=== PATIENT | female | born 1970 | race Two or more races ===

== ENCOUNTER 2023-06-15 09:03 | Inpatient (IN) | payer OTHER ==
[~2023-06-15] VITALS: Ht 157.5 cm; Wt 61.8 kg
[2023-06-15] MEDS ORDERED: SODIUM CHLORIDE 0.9% 1,000 ML IV ONE (09:30)
[2023-06-15] MEDS ORDERED: KETOROLAC TROMETH 30 MG/ML 1ML VIAL IV ONE (09:30)
[2023-06-15 10:07] LABS: Basophils # (auto) 0.1 10 ^3/uL (0-0.2); Basophils % (auto) 0.6 % (0.0-2.0); Eosinophils # (auto) 0 10 ^3/uL (0-0.8); Hematocrit 40.3 % (36.0-46.0); Hemoglobin 13.4 g/dL (12.2-16.2); Lymphocytes # (auto) 0.7 10 ^3/uL (0.4-5.4); Lymphocytes % (auto) 7.4 % (10.0-50.0); Mean Corpuscular Hemoglobin 29.6 pg (28.0-32.0); Mean Corpuscular Hgb Conc. 33.3 g/dL (32.0-36.0); Mean Corpuscular Volume 88.9 fL (80.0-100.0); Monocytes # (auto) 0.6 10 ^3/uL (0-1.3); Monocytes % (auto) 6.1 % (0.0-12.0); Neutrophils # (auto) 8.7 10 ^3/uL (1.6-8.6); Neutrophils % (auto) 85.9 % (37.0-80.0); Red Blood Cells 4.53 10^6/uL (4.0-5.20); Red Cell Distribution Width 12.8 % (11.8-14.3); White Blood Cell 10.1 10^3/uL (4.4-10.8)
[2023-06-15 10:09] LABS: Urine Bacteria MANY /hpf (None Seen); Urine Blood 3+ /uL (Negative); Urine Mucus FEW (None Seen); Urine Specific Gravity 1.015 (1.001-1.035); Urine WBC 38 /hpf (0 - 5)
[2023-06-15 10:17] LABS: Albumin 3.9 g/dL (3.4-5.0); Calcium 8.6 mg/dL (8.5-10.1); Potassium 3.4 mmol/L (3.5-5.1)
[2023-06-15 10:21] LABS: BUN/Creatinine Ratio 13.8 (10.0-20.0); Bilirubin, Total 0.5 mg/dL (0.2-1.0); Total Protein 7.7 g/dL (6.4-8.2)
[2023-06-15] MEDS ORDERED: cefTRIAXone 1GM/50ML D5W 50 ML IV ONE (10:30)
[2023-06-15] MEDS ORDERED: MORPHINE SULFATE INJ 2 MG/ml SYRG IV ONE (10:30)
[2023-06-15] MEDS ORDERED: ONDANSETRON HCL 4 MG/2 ML VIAL IV ONE (10:30)
[2023-06-15 10:55] VITALS: PULSE 83; RESP 15; O2SAT 96
[2023-06-15] MEDS ORDERED: DOCUSATE SOD 100 MG CAP PO PRN (11:45)
[2023-06-15] MEDS ORDERED: ONDANSETRON HCL 4 MG/2 ML VIAL IV PRN (11:45)
[2023-06-15] MEDS ORDERED: MORPHINE SULFATE INJ 2 MG/ml SYRG IV PRN (11:45)
[2023-06-15] MEDS: SODIUM CHLORIDE 0.9% 1,000 ML IV SCH ×2 (12:59→21:11)
[2023-06-15 14:07] VITALS: BP 120/64; PULSE 69; RESP 16; TEMP 97.8; O2SAT 96
[2023-06-15 17:00] VITALS: BP 99/58; PULSE 16; RESP 16; TEMP 97.7; O2SAT 91
[2023-06-15 20:00] VITALS: PULSE 73; RESP 18; O2SAT 99
[2023-06-15 22:00] VITALS: BP 100/60; PULSE 73; RESP 18; TEMP 97.8; O2SAT 99
[2023-06-16 05:00] VITALS: BP 104/63; PULSE 73; RESP 18; TEMP 97.9; O2SAT 98
[2023-06-16 05:56] LABS: Basophils # (auto) 0 10 ^3/uL (0-0.2); Basophils % (auto) 0.2 % (0.0-2.0); Eosinophils # (auto) 0 10 ^3/uL (0-0.8); Hematocrit 34.7 % (36.0-46.0); Hemoglobin 11.7 g/dL (12.2-16.2); Lymphocytes # (auto) 0.8 10 ^3/uL (0.4-5.4); Lymphocytes % (auto) 6.3 % (10.0-50.0); Mean Corpuscular Hemoglobin 29.9 pg (28.0-32.0); Mean Corpuscular Hgb Conc. 33.6 g/dL (32.0-36.0); Mean Corpuscular Volume 89.1 fL (80.0-100.0); Monocytes # (auto) 0.7 10 ^3/uL (0-1.3); Monocytes % (auto) 5.9 % (0.0-12.0); Neutrophils # (auto) 10.4 10 ^3/uL (1.6-8.6); Neutrophils % (auto) 87.6 % (37.0-80.0); Red Cell Distribution Width 12.6 % (11.8-14.3); White Blood Cell 11.9 10^3/uL (4.4-10.8)
[2023-06-16 06:05] LABS: Albumin 2.8 g/dL (3.4-5.0); BUN/Creatinine Ratio 26.4 (10.0-20.0); Calcium 7.9 mg/dL (8.5-10.1); Potassium 3.6 mmol/L (3.5-5.1)
[2023-06-16 06:08] LABS: Bilirubin, Total 0.2 mg/dL (0.2-1.0); Total Protein 5.8 g/dL (6.4-8.2)
[2023-06-16] MEDS: SODIUM CHLORIDE 0.9% 1,000 ML IV SCH ×3 (06:49→22:33)
[2023-06-16 08:32] VITALS: BP 119/49; PULSE 61; RESP 20; TEMP 99; O2SAT 99
[2023-06-16] MEDS ORDERED: cefTRIAXone 1GM/50ML D5W 50 ML IV ONE (11:15)
[2023-06-16] MEDS ORDERED: PANTOPRAZOLE 40 MG TAB PO ONE (11:30)
[2023-06-16 12:26] VITALS: BP_SYST 106; BP_SYST 126; BP_DIAS 67; BP_DIAS 69; PULSE 66; RESP 18; TEMP 98; O2SAT 100
[2023-06-16] MEDS: ACETAMINOPHEN 500 MG TAB PO PRN (16:52)
[2023-06-16 17:06] VITALS: BP 143/74; PULSE 83; RESP 21; TEMP 100.6; O2SAT 95
[2023-06-16 21:55] VITALS: BP 112/66; PULSE 74; RESP 20; TEMP 99.3; O2SAT 96
[2023-06-16 22:31] VITALS: TEMP 98.3
[2023-06-17 05:00] VITALS: BP 134/67; PULSE 75; RESP 20; TEMP 99.2; O2SAT 96
[2023-06-17] MEDS: ACETAMINOPHEN 500 MG TAB PO PRN (06:30)
[2023-06-17] MEDS: SODIUM CHLORIDE 0.9% 1,000 ML IV SCH ×2 (06:30→13:45)
[2023-06-17] MEDS ORDERED: LEVOTHYROXINE SODIUM 50 MCG TAB PO SCH (07:00)
[2023-06-17 08:36] VITALS: BP 132/72; PULSE 67; RESP 20; TEMP 98.8; O2SAT 95
[2023-06-17] MEDS ORDERED: cefTRIAXone 1GM/50ML D5W 50 ML IV SCH (09:00)
[2023-06-17] MEDS ORDERED: PANTOPRAZOLE 40 MG TAB PO SCH (10:00)
[2023-06-17] MEDS ORDERED: CIPR-173 PO (12:05)
[2023-06-17] MEDS ORDERED: TRAM50TA2 PO (12:05)
[2023-06-17 12:27] VITALS: BP 115/50; PULSE 60; RESP 17; TEMP 97.8; O2SAT 99
[2023-06-17 13:01] VITALS: BP 115/50; PULSE 60; RESP 17; TEMP 97.8; O2SAT 96
== END 2023-06-17 15:00 | disposition home or self-care (01) | DRG 694 ==
LOC: ER 09:03 → OVERFLOW 11:45 → WEST WING 14:14
PROVIDERS: ADMIT Nurse Practitioner Family; ATTEND Nurse Practitioner Family
DX: N20.0 Calculus of kidney (principal); N10 Acute pyelonephritis; E87.6 Hypokalemia; E03.9 Hypothyroidism, unspecified; B96.20 Unspecified Escherichia coli [E. coli] as the cause of diseases classified elsewhere
CPT/HCPCS: 36415; 74176; 80053; 81001; 81025; 85025; 87040; 87086; 87088; 87186; G0378; J0696; J2405

== ENCOUNTER → 2023-08-16 | Day surgery (SDC) | payer OTHER ==
[2023-08-10 12:30] LABS: Basophils # (auto) 0.1 10 ^3/uL (0-0.2); Basophils % (auto) 1.3 % (0.0-2.0); Eosinophils # (auto) 0.1 10 ^3/uL (0-0.8); Eosinophils % (auto) 1.3 % (0.0-7.0); Hematocrit 38.3 % (36.0-46.0); Hemoglobin 13.3 g/dL (12.2-16.2); Lymphocytes # (auto) 1.8 10 ^3/uL (0.4-5.4); Lymphocytes % (auto) 29.4 % (10.0-50.0); Mean Corpuscular Hemoglobin 30.6 pg (28.0-32.0); Mean Corpuscular Hgb Conc. 34.7 g/dL (32.0-36.0); Mean Corpuscular Volume 88.2 fL (80.0-100.0); Monocytes # (auto) 0.4 10 ^3/uL (0-1.3); Monocytes % (auto) 5.8 % (0.0-12.0); Neutrophils # (auto) 3.9 10 ^3/uL (1.6-8.6); Neutrophils % (auto) 62.2 % (37.0-80.0); Red Blood Cells 4.34 10^6/uL (4.0-5.20); Red Cell Distribution Width 12.9 % (11.8-14.3); White Blood Cell 6.2 10^3/uL (4.4-10.8)
[2023-08-10 12:46] LABS: INR 0.99 (0.9-1.15); Partial Thromboplastin Time 27.1 SEC (24.5-34.5); Prothrombin Time 10.4 sec (9.3-11.8)
[2023-08-10 13:01] LABS: Alanine Aminotransferase 22 U/L (7-40); Albumin 4.5 g/dL (3.2-4.8); Alkaline Phosphatase 87 U/L (46-116); Anion Gap 4 (5-15); Aspartate Aminotransferase 15 U/L (13-40); BUN/Creatinine Ratio 11.4 (10.0-20.0); Blood Urea Nitrogen 10 mg/dL (9-23); Calcium 9.5 mg/dL (8.7-10.4); Carbon Dioxide 31 mmol/L (20-30); Chloride 106 mmol/L (98-107); Glucose 90 mg/dL (74-106); Potassium 3.3 mmol/L (3.5-5.1); Sodium 141 mmol/L (136-145); Total Protein 7.3 g/dL (5.7-8.2)
[2023-08-10 13:44] LABS: Urine Bacteria NONE SEEN /hpf (None Seen); Urine Blood TRACE /uL (Negative); Urine Clarity HAZY (Clear); Urine Color Colorless (Yellow); Urine Protein, UAD Negative (Negative); Urine Specific Gravity 1.012 (1.001-1.035); Urine Urobilinogen Normal (Negative); Urine WBC 29 /hpf (0 - 5)
[2023-08-10 14:41] LABS: Bilirubin, Total 0.4 mg/dL (0.2-1.0)
[~2023-08-16] VITALS: Ht 160 cm; Wt 57.6 kg
[~2023-08-16] MED LIST: HYDROcodone-ACET 10/325MG TAB ONE; HYDROcodone-ACET 10/325MG TAB PO ONE; LEV50T PO; MIDAZOLAM HCL 2MG/2ML 2ml VIAL (1mg/ml) ONE; ONDANSETRON HCL 4 MG/2 ML VIAL IV PRN; ONDANSETRON HCL 4 MG/2 ML VIAL ONE; PROPOFOL 10 MG/ML 20 ML IV ONE; ceFAZolin 1GM/50ML 100 ML IV ONE; fentaNYL CITRATE 100 MCG/2 ML VL IV ONE; fentaNYL CITRATE 100 MCG/2 ML VL ONE
[2023-08-16 11:35] VITALS: TEMP 97.1
[2023-08-16] MEDS: HYDROmorphone HCL 2 MG/ML VL/or syr IV PRN ×4 (12:07→12:55)
[2023-08-16 13:43] VITALS: BP 157/85; PULSE 60; RESP 13; O2SAT 100
== END | disposition home or self-care (01) ==
LOC: SUR 09:34
PROVIDERS: ATTEND Urology
DX: N20.0 Calculus of kidney (principal)
CPT/HCPCS: 36415; 50590; 80053; 81001; 85025; 85610; 85730; 87086; J0690; J1170; J2250; J2405; J2704; J3010

== ENCOUNTER 2023-09-04 15:29 | Inpatient (IN) | payer OTHER ==
[~2023-09-04] VITALS: Ht 157.5 cm; Wt 57.6 kg
[~2023-09-04 15:29] MED LIST changes: -HYDROcodone-ACET 10/325MG TAB ONE; -HYDROcodone-ACET 10/325MG TAB PO ONE; -MIDAZOLAM HCL 2MG/2ML 2ml VIAL (1mg/ml) ONE; -ONDANSETRON HCL 4 MG/2 ML VIAL IV PRN; -ONDANSETRON HCL 4 MG/2 ML VIAL ONE; -PROPOFOL 10 MG/ML 20 ML IV ONE; -ceFAZolin 1GM/50ML 100 ML IV ONE; -fentaNYL CITRATE 100 MCG/2 ML VL IV ONE; -fentaNYL CITRATE 100 MCG/2 ML VL ONE
[2023-09-04 17:16] LABS: Basophils # (auto) 0.1 10 ^3/uL (0-0.2); Basophils % (auto) 0.6 % (0.0-2.0); Eosinophils # (auto) 0 10 ^3/uL (0-0.8); Eosinophils % (auto) 0.1 % (0.0-7.0); Hematocrit 40.9 % (36.0-46.0); Hemoglobin 13.6 g/dL (12.2-16.2); Lymphocytes # (auto) 0.7 10 ^3/uL (0.4-5.4); Lymphocytes % (auto) 5.9 % (10.0-50.0); Mean Corpuscular Hemoglobin 29.4 pg (28.0-32.0); Mean Corpuscular Hgb Conc. 33.4 g/dL (32.0-36.0); Monocytes # (auto) 0.7 10 ^3/uL (0-1.3); Neutrophils # (auto) 10.7 10 ^3/uL (1.6-8.6); Neutrophils % (auto) 87.4 % (37.0-80.0); Red Blood Cells 4.64 10^6/uL (4.0-5.20); White Blood Cell 12.2 10^3/uL (4.4-10.8)
[2023-09-04 17:24] LABS: Urine Bacteria NONE SEEN /hpf (None Seen); Urine Blood 3+ /uL (Negative); Urine Clarity HAZY (Clear); Urine Color Yellow (Yellow); Urine Mucus FEW (None Seen); Urine Protein, UAD 1+ (Negative); Urine Specific Gravity 1.018 (1.001-1.035); Urine Urobilinogen Normal (Negative); Urine WBC 776 /hpf (0 - 5); Urine WBC Clumps PRESENT /hpf (None Seen)
[2023-09-04 17:28] LABS: Alanine Aminotransferase 32 U/L (7-40); Albumin 4.5 g/dL (3.2-4.8); Alkaline Phosphatase 86 U/L (46-116); Anion Gap 7 (5-15); Aspartate Aminotransferase 35 U/L (13-40); BUN/Creatinine Ratio 18.6 (10.0-20.0); Bilirubin, Total 1.2 mg/dL (0.2-1.0); Blood Urea Nitrogen 13 mg/dL (9-23); Calcium 9.5 mg/dL (8.5-10.1); Carbon Dioxide 30 mmol/L (20-30); Chloride 98 mmol/L (98-107); Glucose 115 mg/dL (74-106); Potassium 3.5 mmol/L (3.5-5.1); Sodium 135 mmol/L (136-145); Total Protein 7.3 g/dL (5.7-8.2)
[2023-09-04 17:48] LABS: Lipase 45 U/L (12-53)
[2023-09-04] MEDS ORDERED: cefTRIAXone 1GM/50ML D5W 50 ML IV ONE (18:00)
[2023-09-04] MEDS ORDERED: fentaNYL CITRATE 100 MCG/2 ML VL IV ONE (18:45)
[2023-09-04] MEDS ORDERED: TAMSULOSIN HYDROCHLORIDE 0.4 MG CAP PO ONE (18:45)
[2023-09-04] MEDS ORDERED: SODIUM CHLORIDE 0.9% 1,000 ML IV ONE (18:45)
[2023-09-04] MEDS ORDERED: KETOROLAC TROMETH 30 MG/ML 1ML VIAL IV PRN (18:45)
[2023-09-04] MEDS ORDERED: ONDANSETRON HCL 4 MG/2 ML VIAL IV PRN (18:45)
[2023-09-04] MEDS ORDERED: ONDANSETRON HCL 4 MG/2 ML VIAL IV ONE (18:45)
[2023-09-05] MEDS: HYDROcodone-ACET 5/325MG TAB PO PRN ×2 (01:36→10:44)
[2023-09-05] MEDS: SODIUM CHLORIDE 0.9% 1,000 ML IV SCH ×4 (03:05→16:07)
[2023-09-05 05:56] LABS: Alanine Aminotransferase 19 U/L (7-40); Albumin 3.5 g/dL (3.2-4.8); Alkaline Phosphatase 61 U/L (46-116); Anion Gap 3 (5-15); Aspartate Aminotransferase 18 U/L (13-40); BUN/Creatinine Ratio 17.1 (10.0-20.0); Blood Urea Nitrogen 12 mg/dL (9-23); Calcium 7.9 mg/dL (8.5-10.1); Carbon Dioxide 28 mmol/L (20-30); Glucose 103 mg/dL (74-106); Potassium 3.2 mmol/L (3.5-5.1); Sodium 139 mmol/L (136-145)
[2023-09-05 05:57] LABS: Bilirubin, Total 0.7 mg/dL (0.2-1.0); Total Protein 5.8 g/dL (5.7-8.2)
[2023-09-05] MEDS: ACETAMINOPHEN 325 MG TAB PO PRN ×2 (06:15→16:03)
[2023-09-05 06:21] LABS: Chloride 108 mmol/L (98-107)
[2023-09-05 06:23] LABS: Basophils # (auto) 0.1 10 ^3/uL (0-0.2); Basophils % (auto) 0.8 % (0.0-2.0); Eosinophils # (auto) 0 10 ^3/uL (0-0.8); Eosinophils % (auto) 0.2 % (0.0-7.0); Hematocrit 33.1 % (36.0-46.0); Hemoglobin 11.1 g/dL (12.2-16.2); Lymphocytes # (auto) 1.1 10 ^3/uL (0.4-5.4); Lymphocytes % (auto) 16.2 % (10.0-50.0); Mean Corpuscular Hemoglobin 29.5 pg (28.0-32.0); Mean Corpuscular Hgb Conc. 33.4 g/dL (32.0-36.0); Mean Corpuscular Volume 88.2 fL (80.0-100.0); Monocytes # (auto) 0.5 10 ^3/uL (0-1.3); Monocytes % (auto) 7.8 % (0.0-12.0); Neutrophils # (auto) 5.2 10 ^3/uL (1.6-8.6); Red Blood Cells 3.76 10^6/uL (4.0-5.20); Red Cell Distribution Width 12.7 % (11.8-14.3); White Blood Cell 6.9 10^3/uL (4.4-10.8)
[2023-09-05] MEDS: LEVOTHYROXINE SODIUM 50 MCG TAB PO SCH (06:28)
[2023-09-05 08:00] VITALS: PULSE 107; RESP 14; O2SAT 95
[2023-09-05] MEDS: cefTRIAXone 1GM/50ML D5W 50 ML IV SCH (09:49)
[2023-09-05 10:23] VITALS: BP 126/69; PULSE 80; RESP 17; TEMP 97.9; O2SAT 97
[2023-09-05 10:35] VITALS: BP 126/69; PULSE 80; RESP 17; TEMP 97.9; O2SAT 97
[2023-09-05 13:00] VITALS: BP 113/64; PULSE 82; RESP 17; TEMP 98.6; O2SAT 97
[2023-09-05 16:30] VITALS: BP 109/79; PULSE 72; RESP 18; TEMP 101.6; O2SAT 99
[2023-09-05] MEDS: TAMSULOSIN HYDROCHLORIDE 0.4 MG CAP PO SCH (18:16)
[2023-09-05 23:02] VITALS: BP 100/54; PULSE 63; RESP 18; TEMP 97.5; O2SAT 96
[2023-09-06] MEDS: ACETAMINOPHEN 325 MG TAB PO PRN ×2 (01:14→09:13)
[2023-09-06] MEDS: SODIUM CHLORIDE 0.9% 1,000 ML IV SCH (01:36)
[2023-09-06 05:32] VITALS: BP 110/57; PULSE 65; RESP 18; TEMP 99; O2SAT 97
[2023-09-06 06:02] LABS: Basophils # (auto) 0.1 10 ^3/uL (0-0.2); Eosinophils # (auto) 0 10 ^3/uL (0-0.8); Eosinophils % (auto) 0.5 % (0.0-7.0); Hematocrit 35.1 % (36.0-46.0); Hemoglobin 11.9 g/dL (12.2-16.2); Lymphocytes # (auto) 1.1 10 ^3/uL (0.4-5.4); Lymphocytes % (auto) 21.5 % (10.0-50.0); Mean Corpuscular Hemoglobin 29.6 pg (28.0-32.0); Mean Corpuscular Volume 87.2 fL (80.0-100.0); Monocytes # (auto) 0.6 10 ^3/uL (0-1.3); Monocytes % (auto) 11.9 % (0.0-12.0); Neutrophils # (auto) 3.5 10 ^3/uL (1.6-8.6); Neutrophils % (auto) 65.1 % (37.0-80.0); Nucleated Red Blood Cells % 0.2 %; Red Blood Cells 4.03 10^6/uL (4.0-5.20); Red Cell Distribution Width 12.6 % (11.8-14.3); White Blood Cell 5.3 10^3/uL (4.4-10.8)
[2023-09-06 06:07] LABS: Chloride 107 mmol/L (98-107); Sodium 139 mmol/L (136-145)
[2023-09-06 06:08] LABS: Anion Gap 6 (5-15); Calcium 8.7 mg/dL (8.7-10.4); Carbon Dioxide 26 mmol/L (20-30)
[2023-09-06 06:13] LABS: BUN/Creatinine Ratio 10.5 (10.0-20.0); Blood Urea Nitrogen 6 mg/dL (9-23)
[2023-09-06] MEDS: LEVOTHYROXINE SODIUM 50 MCG TAB PO SCH (06:37)
[2023-09-06 07:35] LABS: Glucose 93 mg/dL (74-106)
[2023-09-06 08:20] VITALS: BP 127/66; PULSE 60; RESP 18; TEMP 98.2; O2SAT 100
[2023-09-06] MEDS: cefTRIAXone 1GM/50ML D5W 50 ML IV SCH (09:09)
[2023-09-06] MEDS ORDERED: POTASSIUM EFFERVESENT TAB 25 MEQ PO ONE (09:45)
[2023-09-06 12:15] VITALS: BP 121/70; PULSE 64; RESP 18; TEMP 98.2; O2SAT 99
[2023-09-06 16:10] VITALS: BP 124/73; PULSE 66; RESP 18; TEMP 98; O2SAT 99
[2023-09-06] MEDS: TAMSULOSIN HYDROCHLORIDE 0.4 MG CAP PO SCH (17:57)
[2023-09-06] MEDS: SOD CHL 0.9%/ KCL 20MEQ 1,000 ML IV SCH ×2 (19:45→20:02)
[2023-09-06 22:00] VITALS: BP 125/73; PULSE 74; RESP 17; O2SAT 98
[2023-09-07 05:00] VITALS: BP 116/70; PULSE 66; RESP 18; TEMP 98.2; O2SAT 98
[2023-09-07 06:04] LABS: Anion Gap 8 (5-15); Carbon Dioxide 24 mmol/L (20-30); Chloride 109 mmol/L (98-107); Potassium 3.5 mmol/L (3.5-5.1); Sodium 141 mmol/L (136-145)
[2023-09-07 06:05] LABS: Calcium 8.8 mg/dL (8.5-10.1)
[2023-09-07 06:10] LABS: BUN/Creatinine Ratio 15.1 (10.0-20.0); Blood Urea Nitrogen 8 mg/dL (9-23); Glucose 95 mg/dL (74-106)
[2023-09-07] MEDS: SOD CHL 0.9%/ KCL 20MEQ 1,000 ML IV SCH (06:10)
[2023-09-07] MEDS: LEVOTHYROXINE SODIUM 50 MCG TAB PO SCH (06:11)
[2023-09-07 09:00] VITALS: BP 133/76; PULSE 60; RESP 20; TEMP 97.9; O2SAT 98
[2023-09-07] MEDS: cefTRIAXone 1GM/50ML D5W 50 ML IV SCH (11:06)
[2023-09-07] MEDS ORDERED: CEFD300C2 PO (12:49)
[2023-09-07 13:00] VITALS: BP 131/83; PULSE 64; RESP 20; TEMP 98; O2SAT 99
[2023-09-07 14:33] VITALS: BP 133/76; PULSE 60; RESP 18; TEMP 97.9; O2SAT 98
== END 2023-09-07 14:30 | disposition home or self-care (01) | DRG 872 ==
LOC: ER 15:29 → OVERFLOW 18:44 → CENTRAL 09-05 10:25
PROVIDERS: ADMIT Nurse Practitioner Family; ATTEND Nurse Practitioner Acute Care
DX: A41.9 Sepsis, unspecified organism (principal); N10 Acute pyelonephritis; N20.0 Calculus of kidney; E03.9 Hypothyroidism, unspecified; N28.1 Cyst of kidney, acquired; Z87.442 Personal history of urinary calculi; Z82.3 Family history of stroke; B96.20 Unspecified Escherichia coli [E. coli] as the cause of diseases classified elsewhere; Z90.49 Acquired absence of other specified parts of digestive tract; B95.1 Streptococcus, group B, as the cause of diseases classified elsewhere
CPT/HCPCS: 36415; 74176; 80048; 80053; 81001; 83690; 84702; 85025; 87081; 87086; 87088; 87186; 96361; 96365; 96366; G0378; J0696